=== PATIENT | female | born 1990 | race Caucasian/White ===

== ENCOUNTER → 2019-09-27 | Outpatient (CLI) | payer OTHER ==
--- NOTE | 2019-09-27 21:47 | US ---
EXAMINATION TYPE: US transvaginal DATE OF EXAM: 09/27/2019 COMPARISON: NONE CLINICAL HISTORY: N92.1 Excessive and frequent menstruation with irr. Bleeding on and off 5 months TECHNIQUE: . Transvaginal sonographic images of the pelvis were acquired. Date of LMP: One week ago, however bleeding on and off for 5 months EXAM MEASUREMENTS: Uterus: 5.9 x 3.1 x 3.5 cm Endometrial Stripe: 0.9 cm Right Ovary: 3.9 x 1.9 x 2.3 cm Left Ovary: 4.1 x 1.9 x 1.8 cm 1. Uterus: Anteverted Nabothian cyst visualized measuring 1.2 x 0.7 x 1.1 cm 2. Endometrium: wnl 3. Right Ovary: wnl 4. Left Ovary: wnl 5. Bilateral Adnexa: wnl 6. Posterior cul-de-sac: wnl Large 1.2 cm nabothian cyst in the cervix inferiorly nearly abuts the skin surface. Endometrium sligh tly thickened for proliferative phase of menstrual cycle if last known menstrual period one week ago. No free fluid in pelvic cul-de-sac. Both ovaries identified and normal in size with peripheral follicles bilaterally. IMPRESSION: Slightly thickened poorly visualized heterogeneous endometrial stripe.
== END | disposition home or self-care (01) ==
LOC: RADUSWWP 16:11 → MERGE 16:20
PROVIDERS: ATTEND Family Medicine
DX: N92.1 Excessive and frequent menstruation with irregular cycle (principal)
CPT/HCPCS: 76830